=== PATIENT | female | born 1955 | race Caucasian/White ===

== ENCOUNTER 2016-09-05 15:25 | Emergency (ER) | payer MEDICARE, MEDICAID ==
[~2016-09-05] VITALS: Ht 165.1 cm; Wt 122.0 kg
[~2016-09-05 15:25] MED LIST: CARB200T14 PO; CIPR500T4 PO; CYCL-36 PO; LEVO.05 PO; LORTA5 PO; METR-1 PO; PHEN12.5 PO; SIMV20 PO; VENL25TA14 PO
[2016-09-05 15:30] VITALS: BP 188/89; PULSE 88; RESP 18; TEMP 98.6; O2SAT 100
--- NOTE | 2016-09-05 16:02 | RADHPO ---
EXAM DATE/TIME: 09/05/2016 15:51 [place] COMPARISON: No previous studies available for comparison. INDICATIONS : Right lateral foot pain post fall. MEDICAL HISTORY : None. SURGICAL HISTORY : None. ENCOUNTER: Initial ACUITY: 1 day PAIN SCORE: 7/10 LOCATION: Right lateral foot FINDINGS: Three view examination of the right foot demonstrates no soft tissue swelling, dislocation, or fractu re. The tarsal bones appear intact. The interphalangeal and metatarsophalangeal joints are intact. The calcaneus is intact. Bony mineralization is normal. CONCLUSION: Negative trauma study. Jacob Bailey MD on September 05, 2016 at 16:00 Board Certified Radiologist. This report was verified electronically.
[2016-09-05] MEDS ORDERED: LIPI10TA PO (16:10)
[2016-09-05] MEDS ORDERED: VENL25TA PO (16:10)
[2016-09-05] MEDS ORDERED: HYDR-3533 PO (16:10)
[2016-09-05] MEDS ORDERED: LEVO.05 PO (16:10)
[2016-09-05] MEDS ORDERED: TIZA2TAB PO (16:11)
--- NOTE | 2016-09-05 17:00 | PD ---
HPI Chief Complaint: Musculoskeletal Complaint Time Seen by Provider: 15:40 Travel History International Travel<30 days: No Contact w/Intl Traveler<30days: No Traveled to known affect area: No History of Present Illness HPI Patient comes in complaining of right foot pain that occurred around 9:00 this morning after slipping at a store twisting her right foot. Patient went home applied ice to it as well as took pain medication she had from surgery that was done yesterday. Pain is getting progressively worse and radiates across her foot and distally. Pain is aching like in nature with lateral aspect of proximal fifth metatarsal. Denies any numbness or tingling. PFSH Past Medical History Autoimmune Disease: No High Cholesterol: Yes Diminished Hearing: No GERD: Yes Immunizations Current: Yes Thyroid Disease: Yes (hypo) Tetanus Vaccination: Unknown Influenza Vaccination: No ?: Not Menopausal: Yes Tubal Ligation: Yes Past Surgical History Appendectomy: Yes Section: Yes (X2 ) Cholecystectomy: Yes Joint Replacement: Yes (RT KNEE) Tonsillectomy: Yes Other Surgery: Yes (back x 2) Social History Alcohol Use: No Tobacco Use: No (quit 4 1/2 yrs ago smoked 15 cigs a day) Substance Use: No Allergies-Medications (Allergen,Severity, Reaction): Coded Allergies: No Known Allergies (Verified , 09/05/16) Reported Meds & Prescriptions Reported Meds & Active Scripts Active Reported Tizanidine (Tizanidine HCl) 2 Mg Tab 2 Mg PO BID PRN Synthroid (Levothyroxine Sodium) 50 Mcg Tab 50 Mcg PO DAILY Lipitor (Atorvastatin Calcium) Unknown Strength Tab Unknown Dose PO HS Effexor (Venlafaxine HCl) 25 Mg Tab 25 Mg PO Q12H Lortab (Hydrocodone-Acetaminophen) 5-325 Mg Tab 1 Tab PO Q6H PRN Review of Systems Except as stated in HPI: all other systems reviewed are Neg Physical Exam Narrative GENERAL: Well-developed, overly nourished, in no acute distress, and non-ill appearing. SKIN: Warm and dry. HEAD: Atraumatic. Normocephalic. EYES: Pupils equal and round. EOMI. No scleral icterus. No injection or drainage. ENT: No nasal bleeding or discharge. Mucous membranes pink and moist. NECK: Trachea midline. No JVD. Supple. No nuclear rigidity. CARDIOVASCULAR: Dorsal pulses 2+ intact bilaterally. Capillary refill less than 2 seconds. RESPIRATORY: No accessory muscle use. No respiratory distress. MUSCULOSKELETAL: No obvious deformities. No clubbing. No cyanosis. No edema. Full range of motion. Ankle: Neagative anterior draw and Bazan test. Negative Nancy's sign. No laxity noted with passive inversion and eversion of BL ankles. Negative squeeze test. Pulses equal BL distal to injury. Capillary refill less than 2 seconds distal to injury and equal BL. Sensation equal BL 1st web space. FROM of toes distal to injury and equal BL. NV intact distal to injury and equal BL. Dorsal pulses equal BL. She reports tenderness to palpation over proximal fifth metatarsal right lower extremity. NEUROLOGICAL: Awake and alert. No obvious cranial nerve deficits. Motor grossly within normal limits. Normal speech. PSYCHIATRIC: Appropriate mood and affect; insight and judgment normal. Data Data Last Documented VS Vital Signs Date Time Temp Pulse Resp B/P Pulse Ox O2 Delivery O2 Flow Rate FiO2 09/05/16 15:44 16 09/05/16 15:30 98.6 88 188/89 100 Orders Foot, Complete ([id number]) (09/05/16 ) Splint Or Brace Apply/Monitor (09/05/16 16:56) Shoe Cast (09/05/16 ) MDM Medical Decision Making Medical Screen Exam Complete: Yes Emergency Medical Condition: Yes Differential Diagnosis Fracture, sprain, contusion, other Narrative Course There is no clinical evidence for fracture. There is no clinical evidence to suspect bony injury by exam. Radiographic examination revealed no fracture seen at this time. No obvious ligamental injury or internal derangement is noted at this time. The distal extremity appears neurovascularly intact, without evidence of neurovascular injury nor compartment syndrome. Tendon exam also was intact. The effected limb was splinted. The patient was discharged with sprain and splint care instructions and given warnings for vascular compromise. The patient is to follow up with primary care provider or pole inspector. The patient agrees with plan. Patient in no obvious distress upon re-evaluation. All pertinent Radiology result(s) discussed with patient. Any questions/concerns in reference to patient diagnosis/condition discussed and clarified prior to patient's discharge. Reinforced sheer importance of close follow up with patient's primary physician or primary care clinic and/or pole inspector. Instructed patient to return to ED immediately, if symptoms return/worsen. Pt showed understanding of above instructions. Further instructions and recommendations were detailed in discharge paperwork. Pt ambulated without difficulty out of ED at discharge. Diagnosis Primary Impression: Right foot sprain Qualified Code: S93.601A - Right foot sprain, initial encounter Referrals: Boston Villasenor DPM Patient Instructions: Foot Sprain (ED), General Instructions, Splint Care (ED) Additional Instructions: Follow-up with your primary care physician and/or pole inspector in 2-3 days for evaluation. He is [id number] Tylenol and/or ibuprofen as needed for additional pain control. Follow instructions on the packaging. Return to the emergency department if symptoms get worse. Disposition: 01 DISCHARGE HOME Condition: Stable Heron Jurado Sep 05, 2016 16:59
== END 2016-09-05 17:28 | disposition home or self-care (01) ==
LOC: PHEFT 15:25
DX: S93.601A Unspecified sprain of right foot, initial encounter (principal); W01.0XXA Fall on same level from slipping, tripping and stumbling without subsequent striking against object, initial encounter; Y92.512 Supermarket, store or market as the place of occurrence of the external cause
CPT/HCPCS: 73630; 99283; L3260